=== PATIENT | female | born 1995 | race Caucasian/White ===

== ENCOUNTER → 2018-03-05 | Outpatient (CLI) | payer BC | END | disposition home or self-care (01) | LOC: CFH 08:27 | PROVIDERS: ATTEND Nurse Practitioner Family | DX: J32.0 Chronic maxillary sinusitis (principal) | CPT/HCPCS: 70450 ==

== ENCOUNTER 2019-09-13 18:11 | Outpatient (CLI) | payer BC, MEDICAID ==
[~2019-09-13] VITALS: Ht 154.9 cm; Wt 69.1 kg
[2019-09-13 18:34] LABS: MICROSCOPIC NOT IND
[2019-09-13 18:45] LABS: AMPHETAMINE SCREEN, URINE Negative (Negative); BARBITURATE SCREEN, URINE Negative (Negative); BENZODIAZEPINE SCREEN, URINE Negative (Negative); CANNABINOID SCREEN, URINE Negative (Negative); COCAINE SCREEN, URINE Negative (Negative); METHADONE SCREEN, URINE Negative (Negative); OPIATE SCREEN, URINE Negative (Negative)
[2019-09-13 19:07] LABS: BASOPHILS # (AUTO) 0.07 x10^3/uL (0-0.1); BASOPHILS % (AUTO) 1 % (0-1); EOSINOPHILS # (AUTO) 0.03 x10^3/uL (0-0.4); EOSINOPHILS % (AUTO) 0 % (1-7); LYMPHOCYTES # (AUTO) 2.12 x10^3/uL (1-3.4); LYMPHOCYTES % (AUTO) 26 % (22-44); MD NO; MEAN CORPUSCULAR HEMOGLOBIN 29.7 pg (27.0-34.8); MEAN CORPUSCULAR HGB CONC 33.4 g/dL (32.4-35.8); MEAN CORPUSCULAR VOLUME 88.7 fL (80-100); MEAN PLATELET VOLUME 9.2 fL (7.4-10.4); MONOCYTES # (AUTO) 0.64 x10^3/uL (0.2-0.8); MONOCYTES % (AUTO) 8 % (2-9); NEUTROPHILS # (AUTO) 5.16 x10^3/uL (1.8-6.8); NEUTROPHILS % (AUTO) 64 % (42-75); PLATELET COUNT 190 x10^3/uL (130-400); RED BLOOD COUNT 3.51 x10^6/uL (3.82-5.3); RED CELL DISTRIBUTION WIDTH 12.9 % (9.6-15.2)
[2019-09-13] MEDS ORDERED: ACETAMINOPHEN 325 MG TABLET ONE (19:09)
[2019-09-13 19:17] LABS: ALANINE AMINOTRANSFERASE 22 U/L (12-78); ALBUMIN 2.3 g/dL (3.4-5.0); ANION GAP 8 mmol/L (5-15); CALCIUM 8.1 mg/dL (8.5-10.1); CHLORIDE 110 mmol/L (98-107)
[2019-09-13 19:20] LABS: ALKALINE PHOSPHATASE 175 U/L (45-117); BILIRUBIN,TOTAL 0.8 mg/dL (0.2-1.0); CREATININE 0.92 mg/dL (0.55-1.02); TOTAL PROTEIN 6.2 g/dL (6.4-8.2)
[2019-09-13] MEDS ORDERED: ACETAMINOPHEN 325 MG TABLET PO PRN (19:30)
[2019-09-13 19:48] LABS: CREATININE,URINE RANDOM 77.8 mg/dL
== END 2019-09-13 20:12 | disposition home or self-care (01) ==
LOC: LDOP 18:11
PROVIDERS: ATTEND Obstetrics & Gynecology
DX: O16.3 Unspecified maternal hypertension, third trimester (principal); Z3A.36 36 weeks gestation of pregnancy
CPT/HCPCS: 36415; 59025; 80053; 80307; 81003; 82570; 84156; 84550; 85025; 87086

== ENCOUNTER 2019-09-28 10:17 | Inpatient (IN) | payer MEDICAID ==
[~2019-09-28] VITALS: Ht 154.9 cm; Wt 70.5 kg
[2019-09-28] MEDS ORDERED: CALCIUM CARBONATE 500 MG TAB.CHEW ONE ×2 (19:54→22:20)
[2019-09-28] MEDS: CALCIUM CARBONATE 500 MG TAB.CHEW PO PRN ×2 (20:00→22:21)
[2019-09-28] MEDS ORDERED: OXYTOCIN 30U/ 0.9% NaCL 500ML 500 ML IV PRN (20:20)
[2019-09-28] MEDS ORDERED: OXYTOCIN 30U/ 0.9% NaCL 500ML 500 ML IV ONE (20:20)
[2019-09-28] MEDS: D5%-LACTATED RINGERS 1,000 ML IV SCH (20:20)
[2019-09-28 20:24] VITALS: BP 133/91
[2019-09-28] MEDS ORDERED: TERBUTALINE 1 MG/ML, 1ML SQ PRN (20:30)
[2019-09-28] MEDS ORDERED: TERBUTALINE 1 MG/ML, 1ML IVPush PRN (20:30)
[2019-09-28] MEDS ORDERED: SODIUM CITRATE/CITRIC ACID 30 ML UDC PO PRN (20:30)
[2019-09-28] MEDS ORDERED: FENTANYL PF 100 MCG/2ML IV PRN (20:30)
[2019-09-28] MEDS ORDERED: METOCLOPRAMIDE 5 MG/ML, 2ML IVPush PRN (20:30)
[2019-09-28] MEDS ORDERED: ONDANSETRON 2MG/ML, 2ML IVPush PRN (20:30)
[2019-09-28 20:50] LABS: BASOPHILS # (AUTO) 0.06 x10^3/uL (0-0.1); BASOPHILS % (AUTO) 1 % (0-1); EOSINOPHILS # (AUTO) 0.01 x10^3/uL (0-0.4); EOSINOPHILS % (AUTO) 0 % (1-7); LYMPHOCYTES # (AUTO) 2.35 x10^3/uL (1-3.4); LYMPHOCYTES % (AUTO) 25 % (22-44); MD NO; MEAN CORPUSCULAR HEMOGLOBIN 29.4 pg (27.0-34.8); MEAN CORPUSCULAR HGB CONC 33.6 g/dL (32.4-35.8); MEAN CORPUSCULAR VOLUME 87.5 fL (80-100); MEAN PLATELET VOLUME 9.6 fL (7.4-10.4); MONOCYTES # (AUTO) 0.64 x10^3/uL (0.2-0.8); MONOCYTES % (AUTO) 7 % (2-9); NEUTROPHILS # (AUTO) 6.28 x10^3/uL (1.8-6.8); NEUTROPHILS % (AUTO) 67 % (42-75); PLATELET COUNT 200 x10^3/uL (130-400); RED CELL DISTRIBUTION WIDTH 13.3 % (9.6-15.2)
[2019-09-28] MEDS ORDERED: LIDOCAINE 1%, 20ML ONE (20:54)
[2019-09-28] MEDS ORDERED: OXYTOCIN 30U/ 0.9% NaCL 500ML 500 ML ONE (20:54)
[2019-09-28] MEDS ORDERED: MISOPROSTOL 200 MCG TABLET ONE (20:54)
[2019-09-28] MEDS ORDERED: MISOPROSTOL 25 MCG TABLET ONE (20:54)
[2019-09-28] MEDS ORDERED: NEWBORN KIT ONE (20:54)
[2019-09-28] MEDS: MISOPROSTOL 25 MCG TABLET VG PRN (21:08)
[2019-09-28] MEDS: LACTATED RINGERS 1,000 ML IV SCH (21:08)
[2019-09-29] MEDS: CALCIUM CARBONATE 500 MG TAB.CHEW PO PRN ×2 (00:10→05:51)
[2019-09-29] MEDS ORDERED: MISOPROSTOL 25 MCG TABLET ONE ×2 (01:47→05:48)
[2019-09-29] MEDS: MISOPROSTOL 25 MCG TABLET VG PRN ×2 (01:51→05:51)
[2019-09-29 02:42] LABS: ALBUMIN 2.5 g/dL (3.4-5.0); BILIRUBIN, DIRECT 0.1 mg/dL (0.1-0.2); CALCIUM 9.6 mg/dL (8.5-10.1); CHLORIDE 108 mmol/L (98-107); CREATININE 0.86 mg/dL (0.55-1.02)
[2019-09-29 02:51] LABS: ALANINE AMINOTRANSFERASE 30 U/L (12-78); ALKALINE PHOSPHATASE 203 U/L (45-117); BILIRUBIN,TOTAL 0.7 mg/dL (0.2-1.0); TOTAL PROTEIN 6.7 g/dL (6.4-8.2)
[2019-09-29 03:42] LABS: CREATININE,URINE RANDOM 89.9 mg/dL
[2019-09-29 03:52] LABS: ANION GAP 10 mmol/L (5-15)
[2019-09-29 03:54] LABS: MICROSCOPIC INDICATED
[2019-09-29] MEDS ORDERED: CALCIUM CARBONATE 500 MG TAB.CHEW ONE (05:48)
[2019-09-29] MEDS ORDERED: OXYTOCIN 30U/ 0.9% NaCL 500ML 500 ML IV PRN (10:45)
[2019-09-29] MEDS ORDERED: FENTANYL PF 100 MCG/2ML ONE ×2 (11:54→16:28)
[2019-09-29] MEDS: FENTANYL PF 100 MCG/2ML IVPush PRN ×2 (11:57→16:35)
[2019-09-29] MEDS: D5%-LACTATED RINGERS 1,000 ML IV SCH (12:34)
[2019-09-29] MEDS: LACTATED RINGERS 1,000 ML IV SCH ×2 (16:42→18:45)
[2019-09-29] MEDS ORDERED: BUPIVACAINE 0.25% ONE (18:29)
[2019-09-29] MEDS ORDERED: FENTANYL/BUPIV./NS/PF 250 ML EPIDCONT ONE (18:29)
[2019-09-29] MEDS ORDERED: LACTATED RINGERS 1,000 ML IV SCH (18:47)
[2019-09-29] MEDS ORDERED: FENTANYL/BUPIV./NS/PF 250 ML EPIDCONT SCH (18:47)
[2019-09-29] MEDS ORDERED: EPHEDRINE 50 MG/ML, 1ML IVPush PRN (19:00)
[2019-09-29] MEDS ORDERED: DIPHENHYDRAMINE 50 MG/ML, 1ML IVPush PRN (19:00)
[2019-09-29] MEDS ORDERED: NALOXONE 0.4 MG/ML, 1ML IVPush PRN (19:00)
[2019-09-29] MEDS ORDERED: ONDANSETRON 2MG/ML, 2ML IVPush PRN (19:00)
[2019-09-29] MEDS ORDERED: LACTATED RINGERS 1,000 ML IVBOLUS PRN (19:00)
[2019-09-29] MEDS ORDERED: ONDANSETRON 2MG/ML, 2ML ONE (21:32)
[2019-09-30] MEDS ORDERED: LIDOCAINE/MPF 2%-EPI 1:200K, 20 ML ONE (00:41)
[2019-09-30] MEDS ORDERED: ONDANSETRON 2MG/ML, 2ML IV PRN (04:30)
[2019-09-30] MEDS ORDERED: SIMETHICONE 80 MG CHEW TAB PO PRN (04:30)
[2019-09-30] MEDS ORDERED: ACETAMINOPHEN 325 MG TABLET PO PRN (04:30)
[2019-09-30] MEDS ORDERED: MISOPROSTOL 200 MCG TABLET PR PRN (04:30)
[2019-09-30] MEDS ORDERED: OXYcodone/APAP 5/325MG TABLET PO PRN (04:30)
[2019-09-30] MEDS ORDERED: OXYTOCIN 30U/ 0.9% NaCL 500ML 500 ML ONE (04:55)
[2019-09-30] MEDS: OXYTOCIN 30U/ 0.9% NaCL 500ML 500 ML IV SCH ×2 (04:57→14:12)
[2019-09-30] MEDS ORDERED: OXYcodone/APAP 5/325MG TABLET ONE (05:18)
[2019-09-30] MEDS ORDERED: ACETAMINOPHEN 325 MG TABLET ONE (05:18)
[2019-09-30] MEDS: OXYcodone/APAP 5/325MG TABLET PO PRN (05:20)
[2019-09-30 07:00] VITALS: BP 150/95
[2019-09-30] MEDS: PRENATAL VIT/IRON/FA 1 EACH TABLET PO SCH (07:39)
[2019-09-30] MEDS: DOCUSATE 100 MG CAPSULE PO PRN ×2 (07:39→19:33)
[2019-09-30] MEDS: IBUPROFEN 600 MG TABLET PO PRN ×2 (10:01→19:33)
[2019-09-30 10:09] VITALS: BP 137/96
[2019-09-30 12:46] LABS: MEAN CORPUSCULAR HEMOGLOBIN 29.5 pg (27.0-34.8); MEAN CORPUSCULAR HGB CONC 33.2 g/dL (32.4-35.8); MEAN CORPUSCULAR VOLUME 88.8 fL (80-100); MEAN PLATELET VOLUME 9.1 fL (7.4-10.4); PLATELET COUNT 155 x10^3/uL (130-400); RED BLOOD COUNT 3.33 x10^6/uL (3.82-5.3); RED CELL DISTRIBUTION WIDTH 13.2 % (9.6-15.2)
[2019-09-30 13:21] LABS: BASOPHILS # (AUTO) 0.04 x10^3/uL (0-0.1); BASOPHILS % (AUTO) 0 % (0-1); EOSINOPHILS % (AUTO) 0 % (1-7); LYMPHOCYTES # (AUTO) 1.84 x10^3/uL (1-3.4); LYMPHOCYTES % (AUTO) 10 % (22-44); MD SCAN; MONOCYTES # (AUTO) 1.02 x10^3/uL (0.2-0.8); MONOCYTES % (AUTO) 5 % (2-9); NEUTROPHILS # (AUTO) 15.89 x10^3/uL (1.8-6.8); NEUTROPHILS % (AUTO) 85 % (42-75)
[2019-09-30 15:25] VITALS: BP 130/90
[2019-09-30 22:30] VITALS: BP 155/102
[2019-09-30 23:30] VITALS: BP 142/91
[2019-10-01] MEDS: OXYcodone/APAP 5/325MG TABLET PO PRN ×3 (00:04→14:49)
[2019-10-01] MEDS: OXYTOCIN 30U/ 0.9% NaCL 500ML 500 ML IV SCH (00:12)
[2019-10-01 01:40] VITALS: BP 152/98
[2019-10-01 05:26] VITALS: BP 139/94
[2019-10-01 07:55] VITALS: BP 138/94
[2019-10-01] MEDS: PRENATAL VIT/IRON/FA 1 EACH TABLET PO SCH (08:10)
[2019-10-01] MEDS: DOCUSATE 100 MG CAPSULE PO PRN (08:10)
[2019-10-01] MEDS: IBUPROFEN 600 MG TABLET PO PRN ×2 (08:12→14:48)
[2019-10-01 09:14] LABS: BASOPHILS # (AUTO) 0.05 x10^3/uL (0-0.1); BASOPHILS % (AUTO) 0 % (0-1); EOSINOPHILS # (AUTO) 0.08 x10^3/uL (0-0.4); EOSINOPHILS % (AUTO) 1 % (1-7); LYMPHOCYTES # (AUTO) 2.44 x10^3/uL (1-3.4); LYMPHOCYTES % (AUTO) 17 % (22-44); MD NO; MEAN CORPUSCULAR HEMOGLOBIN 29.2 pg (27.0-34.8); MEAN CORPUSCULAR HGB CONC 32.8 g/dL (32.4-35.8); MEAN PLATELET VOLUME 9.1 fL (7.4-10.4); MONOCYTES # (AUTO) 0.86 x10^3/uL (0.2-0.8); MONOCYTES % (AUTO) 6 % (2-9); NEUTROPHILS # (AUTO) 10.62 x10^3/uL (1.8-6.8); NEUTROPHILS % (AUTO) 76 % (42-75); PLATELET COUNT 166 x10^3/uL (130-400); RED BLOOD COUNT 3.08 x10^6/uL (3.82-5.3); RED CELL DISTRIBUTION WIDTH 13.3 % (9.6-15.2)
[2019-10-01 09:23] LABS: ALBUMIN 1.9 g/dL (3.4-5.0); ANION GAP 4 mmol/L (5-15); CALCIUM 7.9 mg/dL (8.5-10.1); CHLORIDE 113 mmol/L (98-107)
[2019-10-01 09:27] LABS: ALANINE AMINOTRANSFERASE 34 U/L (12-78); ALKALINE PHOSPHATASE 160 U/L (45-117); BILIRUBIN, DIRECT 0.2 mg/dL (0.1-0.2); BILIRUBIN,TOTAL 0.4 mg/dL (0.2-1.0); CREATININE 0.72 mg/dL (0.55-1.02); TOTAL PROTEIN 5.3 g/dL (6.4-8.2)
[2019-10-01] MEDS ORDERED: HEPATITIS B PED VACCINE/PF 5MCG/0.5ML IM-VACC ONE (11:46)
[2019-10-01] MEDS ORDERED: LIDOCAINE-MPF 1%, 2ML ONE (11:46)
[2019-10-01 12:35] VITALS: BP 141/92
[2019-10-01 14:54] LABS: MICROSCOPIC INDICATED
[2019-10-01 15:41] LABS: CREATININE,URINE RANDOM 34.9 mg/dL
[2019-10-01 16:39] VITALS: BP 153/102
[2019-10-01 16:40] VITALS: BP 148/96
[2019-10-01] MEDS ORDERED: IBUP-1222 PO (18:32)
[2019-10-01] MEDS ORDERED: DIPH,PERTUSS(ACELL),TET VAC/PF NC IM-VACC ONE (19:03)
[2019-10-01] MEDS ORDERED: MEASLES,MUMPS&RUBELLA VACC/PF 0.5 ML SQ-VACC ONE (19:06)
== END 2019-10-01 19:20 | disposition home or self-care (01) | DRG 807 ==
LOC: LDIP 19:54 → 2NW 09-30 06:39
PROVIDERS: ADMIT Obstetrics & Gynecology; ATTEND Obstetrics & Gynecology
PROC: 10907ZC Drainage of Amniotic Fluid, Therapeutic from Products of Conception, Via Natural or Artificial Opening (ICD-10-PCS; 2019-09-29)
PROC: 10H07YZ Insertion of Other Device into Products of Conception, Via Natural or Artificial Opening (ICD-10-PCS; 2019-09-29)
PROC: 10E0XZZ Delivery of Products of Conception, External Approach (ICD-10-PCS; principal; 2019-09-30)
PROC: 3E0R3BZ Introduction of Anesthetic Agent into Spinal Canal, Percutaneous Approach (ICD-10-PCS; 2019-09-30)
PROC: 00HU33Z Insertion of Infusion Device into Spinal Canal, Percutaneous Approach (ICD-10-PCS; 2019-09-30)
PROC: 3E0234Z Introduction of Serum, Toxoid and Vaccine into Muscle, Percutaneous Approach (ICD-10-PCS; 2019-10-01)
DX: O13.4 Gestational [pregnancy-induced] hypertension without significant proteinuria, complicating childbirth (principal); Z37.0 Single live birth; Z3A.39 39 weeks gestation of pregnancy; Z23 Encounter for immunization; Z03.818 Encounter for observation for suspected exposure to other biological agents ruled out
CPT/HCPCS: 36415; J7121; 80053; 81001; 82248; 82570; 84156; 84550; 85025; 86592; 86850; 86900; 87635; G0378; J2405; J3010; J2590; J7120

== ENCOUNTER 2020-08-10 11:28 | Emergency (ER) | payer MEDICAID ==
[~2020-08-10] VITALS: Ht 154.9 cm; Wt 62.6 kg
[~2020-08-10 11:28] MED LIST: IBUP-1222 PO
--- NOTE | 2020-08-10 12:51 | NUR ---
PATIENT WALKED BACK FROM TRIAGE WITH CHIEF C/O MIGRAINE X1.5 WEEKS. PATIENT REPORTS NAUSEA AND EPISODE OF EMESIS THIS MORNING, SENSITIVITY TO SOUNDS AND LIGHT, HEARING LOSS LEFT EAR, NECK PAIN/STIFFNESS WELL. PATIENT WENT TO AND REFERRED TO ED TO R/O MENINGITIS. PT DENIES FEVER. CONNECTED TO MONITOR, VSS, CALL LIGHT WITHIN REACH.
[2020-08-10] MEDS ORDERED: KETOROLAC 30 MG/1 ML IM ONE (13:30)
[2020-08-10] MEDS ORDERED: METOCLOPRAMIDE 5 MG/ML, 2ML IM ONE (13:30)
[2020-08-10 13:35] LABS: BASOPHILS % (AUTO) 0 % (0-1); EOSINOPHILS % (AUTO) 0 % (1-7); LYMPHOCYTES % (AUTO) 18 % (22-44); MEAN CORPUSCULAR HGB CONC 34.7 g/dL (32.4-35.8); MONOCYTES % (AUTO) 7 % (2-9); NEUTROPHILS % (AUTO) 74 % (42-75); PLATELET COUNT 202 x10^3/uL (130-400); RED BLOOD COUNT 4.34 x10^6/uL (3.82-5.3); RED CELL DISTRIBUTION WIDTH 12.6 % (9.6-15.2)
[2020-08-10] MEDS ORDERED: KETOROLAC 30 MG/1 ML ONE (13:40)
[2020-08-10] MEDS ORDERED: METOCLOPRAMIDE 5 MG/ML, 2ML ONE (13:40)
[2020-08-10 13:44] LABS: ALBUMIN 3.9 g/dL (3.4-5.0); ANION GAP 8 mmol/L (5-15); CALCIUM 8.9 mg/dL (8.5-10.1); CHLORIDE 107 mmol/L (98-107); CREATININE 0.72 mg/dL (0.55-1.02)
--- NOTE | 2020-08-10 14:01 | NUR ---
PATIENT MEDICATED PER eMAR, NADN, VSS, CALL LIGHT WITHIN REACH, NO FURTHER NEEDS AT THIS TIME.
[2020-08-10 14:57] VITALS: BP 106/59
--- NOTE | 2020-08-10 14:57 | NUR ---
Patient given discharge instructions and prescription and they have confirmed that they understand the instructions. Patient ambulatory with steady gait. NAD, all questions answered appropriately, denies additional needs at this time. No personal belongings left in room after discharge.
== END 2020-08-10 14:58 | disposition home or self-care (01) ==
LOC: ED 14:29
DX: G43.101 Migraine with aura, not intractable, with status migrainosus (principal); D72.829 Elevated white blood cell count, unspecified
CPT/HCPCS: 36415; 80048; 82040; 85025; 96372; 99284; J1885; J2765